=== PATIENT | female | born 1945 | race Caucasian/White ===

== ENCOUNTER 2016-07-10 07:05 | Emergency (ER) | payer MEDICARE, BC, OTHER ==
[~2016-07-10] VITALS: Ht 162.6 cm; Wt 77.0 kg
[2016-07-10] MEDS ORDERED: EFFEXOR XR75 MG PO (07:23)
[2016-07-10] MEDS ORDERED: SYNTHROID50 MCG PO (07:24)
[2016-07-10 07:53] LABS: HEMATOCRIT 44.1 % (37.0-47.0); HEMOGLOBIN 13.8 g/dl (12.0-16.0); IMMATURE GRANULOCYTES 0.3 % (0.0-1.0); MEAN CELL VOLUME 81.8 fL CALC (80.0-100.0); MEAN CORPUSCULAR HGB 25.6 pG CALC (26.0-32.0); MEAN CORPUSCULAR HGB CONC 31.3 g/L CALC (32.0-36.0); NEUT# 3.14 thou/uL (2.00-7.15); RED BLOOD COUNT 5.39 mill/uL (4.20-5.60); RED CELL DISTRI WIDTH 14.6 % (11.5-15.5)
[2016-07-10 08:08] LABS: PROTHROMBIN TIME 10.5 SECONDS (9.0-12.5)
[2016-07-10 08:13] LABS: ALKALINE PHOSPHATASE 91 u/l (38-126); ANION GAP 7 (6-22 (CALC)); BILIRUBIN, TOTAL 0.5 mg/dL (0.0-1.4); BUN 14 mg/dL (8-23); BUN/CREATININE RATIO 21 (12-20 (CALC)); CALCIUM 9.1 mg/dL (8.4-10.2); CARBON DIOXIDE 29 mmol/l (22-30); CHLORIDE 105 mmol/l (95-108); CREATININE 0.7 mg/dL (0.5-1.0); GFR > 60 ML/MIN (>=60 (CALC)); GFR FOR AFR.AMER. > 60 ML/MIN (>=60 (CALC)); GLUCOSE 107 mg/dL (82-115); SGOT/AST 19 u/l (9-36); SGPT/ALT 25 u/l (11-66); SODIUM 137 mmol/l (137-146); TOTAL PROTEIN 7.1 g/dL (6.3-8.2)
[2016-07-10 09:27] VITALS: BP 163/88
== END 2016-07-10 09:45 | disposition home or self-care (01) ==
LOC: ED 07:05
PROVIDERS: Emergency Medicine
PROC: 2Y41X5Z Packing of Nasal Region using Packing Material (ICD-10-PCS; principal; 2016-07-10)
DX: R04.0 Epistaxis (principal); G47.30 Sleep apnea, unspecified